=== PATIENT | female | born 1950 | race Caucasian/White ===

== ENCOUNTER 2019-07-03 19:03 | Inpatient (IN) ==
--- NOTE | 2019-07-03 20:10 | Diag Imaging Result Doc PS360 ---
EXAM: CHEST-1 VIEW 07/03/2019 HISTORY: fall TECHNIQUE: AP chest supine COMMENT: There is cardiomegaly. There is generalized osteopenia. The lungs are clear. There are no previous studies. IMPRESSION: Cardiomegaly. Electronically signed by London Villalpando 07/03/2019 8:08 PM
--- NOTE | 2019-07-03 20:11 | Diag Imaging Result Doc PS360 ---
EXAM: XRAY PELVIS W/HIP 2-3VW LT 07/03/2019 HISTORY: fall TECHNIQUE: Left and AP pelvis three views COMMENT: There is a fracture of the left femoral neck. There is generalized osteopenia. IMPRESSION: Fractured left femoral neck. Electronically signed by London Villalpando 07/03/2019 8:09 PM
--- NOTE | 2019-07-03 20:11 | Diag Imaging Result Doc PS360 ---
EXAM: KNEE 3 VIEWS LEFT 07/03/2019 HISTORY: fall, trauma to left knee TECHNIQUE: Left knee three views COMMENT: There is marked joint space narrowing. There is erosion of the medial femoral condyle and large osteophytes on both sides of the joint. There is an effusion. No evidence of fracture or dislocation is present. IMPRESSION: Severe osteoarthritis. Electronically signed by London Villalpando 07/03/2019 8:09 PM
[2019-07-03 20:14] LABS: BASO# 0.03 X1000 (0.0-0.2); BASO% 0.2 % (0.0-0.8); EOS# 0.01 X1000 (0.0-0.7); EOS% 0.1 % (0.0-10.0); HEMATOCRIT 32.5 % (37.0-47.0); HEMOGLOBIN 10.2 g/dL (12.0-16.0); IMM GRAN# 0.15 X1000 (0.0-0.04); LYMPH% 4.8 % (20.5-51.1); MCH 23.6 PG (27-31); MCHC 31.4 g/dL (33-37); MCV 75.1 FL (81-99); MONO# 0.53 X1000 (0.11-0.59); MONO% 3.6 % (1.7-9.3); MPV 9.8 FL (7.4-10.4); NEUT# 13.27 X1000 (1.4-6.5); NEUT% 90.3 % (42.2-75.2); PLT 386 X1000 (130-400); RBC 4.33 XMIL (4.2-5.4); RDW 17.1 % (11.5-14.5); WBC 14.69 X1000 (4.8-10.8)
[2019-07-03 20:32] LABS: AGAP 12; ALBUMIN 3.6 g/dL (3.5-5.0); ALKALINE PHOSPHATASE 75 U/L (32-104); BUN 10 mg/dL (8-22); CALCIUM 8.9 mg/dL (8.8-10.2); CHLORIDE 98 mmol/L (98-107); COSMO 268; CREATININE 0.5 mg/dL (0.5-0.9); ESTIMATED GFR > 60; GLUCOSE 111 mg/dL (70-104); GOT 15 U/L (10-30); GPT 10 U/L (10-36); POTASSIUM 3.6 mmol/L (3.5-5.1); SODIUM 134 mmol/L (136-145); TCO2 24 mmol/L (25-35); TOTAL BILIRUBIN 0.41 mg/dL (0.20-1.00); TOTAL PROTEIN 7.3 g/dL (6.3-8.3)
[2019-07-03] MEDS ORDERED: NS 1,000 ML IV ONE (20:34)
[2019-07-03] MEDS ORDERED: MORPHINE IV ONE (20:34)
[2019-07-03] MEDS ORDERED: NORVASC PO ONE (21:16)
[2019-07-03] MEDS ORDERED: APRESOLINE IV ONE (21:16)
--- NOTE | 2019-07-03 21:20 | Diag Imaging Result Doc PS360 ---
EXAM: FOREARM-LEFT 07/03/2019 HISTORY: fall, trauma TECHNIQUE: Left forearm COMMENT: There is a fracture of the distal humerus. There is severe erosion of the radial head and olecranon fossa. IMPRESSION: There is a fracture of the distal humerus and severe erosive arthritis as described. Electronically signed by London Villalpando 07/03/2019 9:18 PM
--- NOTE | 2019-07-03 21:28 | Diag Imaging Result Doc PS360 ---
EXAM: ELBOW COMPLETE LEFT 07/03/2019 HISTORY: fall, trauma TECHNIQUE: Left elbow three views COMMENT: There are severe erosive changes present in the olecranon and radial head. There is a fracture passing through the distal shaft of the humerus into the intercondylar region. IMPRESSION: Fracture distal humerus. Chronic erosive changes. Electronically signed by London Villalpando 07/03/2019 9:26 PM
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
[2019-07-03] MEDS ORDERED: OXY IR PO PRN (22:38)
[2019-07-03 22:47] LABS: URINE SOURCE CATH
[2019-07-03 22:59] LABS: BILIRUBIN URINE NEGATIVE (NEGATIVE); BLOOD URINE TRACE (NEGATIVE); COLOR YELLOW; GLUCOSE URINE NEGATIVE (NEGATIVE); KETONE URINE NEGATIVE (NEGATIVE); LEUKOCYTES URINE NEGATIVE (NEGATIVE); NITRITE URINE NEGATIVE (NEGATIVE); PH URINE 6.5; PROTEIN URINE NEGATIVE (NEGATIVE); SP GRAVITY URINE 1.011; TURBIDITY URINE CLEAR (CLEAR); UROBILINOGEN URINE NORMAL (NORMAL)
[2019-07-03] MEDS ORDERED: NS 1,000 ML ONE (23:00)
[2019-07-03 23:01] LABS: UR EPITHELIAL CELLS <10 /HPF (<10); URINE BACTERIA NEGATIVE /HPF; URINE RBC <10 /HPF (<10); URINE WBC <10 /HPF (<10)
[2019-07-03] MEDS: NS 1,000 ML IV SCH (23:03)
[2019-07-03] MEDS: MORPHINE IV PRN (23:23)
[2019-07-03] MEDS: ZOFRAN IV PRN (23:23)
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
[2019-07-04] MEDS: NS 1,000 ML IV SCH ×2 (05:54→15:01)
[2019-07-04] MEDS: MORPHINE IV PRN (05:54)
[2019-07-04] MEDS: ZOFRAN IV PRN (05:54)
[2019-07-04 07:00] LABS: BASO# 0.02 X1000 (0.0-0.2); BASO% 0.3 % (0.0-0.8); EOS# 0.01 X1000 (0.0-0.7); EOS% 0.1 % (0.0-10.0); HEMATOCRIT 29.1 % (37.0-47.0); HEMOGLOBIN 8.9 g/dL (12.0-16.0); LYMPH# 0.89 X1000 (1.2-3.4); LYMPH% 12.9 % (20.5-51.1); MCH 23.2 PG (27-31); MCHC 30.6 g/dL (33-37); MONO# 0.41 X1000 (0.11-0.59); MONO% 5.9 % (1.7-9.3); MPV 10.1 FL (7.4-10.4); NEUT# 5.57 X1000 (1.4-6.5); NEUT% 80.8 % (42.2-75.2); PLT 344 X1000 (130-400); RBC 3.83 XMIL (4.2-5.4); RDW 17.2 % (11.5-14.5)
[2019-07-04 07:28] LABS: AGAP 10; BUN 8 mg/dL (8-22); CHLORIDE 101 mmol/L (98-107); COSMO 269; CREATININE 0.4 mg/dL (0.5-0.9); ESTIMATED GFR > 60; GLUCOSE 108 mg/dL (70-104); SODIUM 135 mmol/L (136-145); TCO2 24 mmol/L (25-35)
[2019-07-04] MEDS ORDERED: DIPRIVAN 1% ONE (07:39)
[2019-07-04] MEDS ORDERED: NEOSPORIN G.U. IRRIGANT ONE (07:51)
[2019-07-04] MEDS ORDERED: KEFZOL 1 GM/D5W 1 GM/50 ML IVPB ONE (08:09)
[2019-07-04] MEDS ORDERED: TYLENOL PO PRN (09:00)
[2019-07-04] MEDS ORDERED: ROBINUL ONE (09:17)
[2019-07-04] MEDS ORDERED: ZOFRAN ONE (09:17)
[2019-07-04] MEDS ORDERED: EPHEDRINE ONE (09:17)
[2019-07-04] MEDS ORDERED: DECADRON ONE (09:17)
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
--- NOTE | 2019-07-04 10:45 | Diag Imaging Result Doc PS360 ---
EXAM: HIP 1 VIEW LEFT 07/04/2019 HISTORY: l hemiarthroplasty TECHNIQUE: AP left hip COMMENT: There is a bipolar hip prosthesis. No additional fractures or acute bony abnormalities are present. IMPRESSION: Postsurgical changes. Electronically signed by London Villalpando 07/04/2019 10:42 AM
[2019-07-04] MEDS ORDERED: MORPHINE IV PRN (11:15)
[2019-07-04] MEDS ORDERED: MILK OF MAGNESIA PO PRN (11:15)
[2019-07-04] MEDS ORDERED: ZOFRAN IV PRN (11:15)
[2019-07-04] MEDS: OXY IR PO PRN (13:17)
[2019-07-04] MEDS: TYLENOL PO SCH ×2 (13:17→22:52)
[2019-07-04] MEDS: MIRALAX PO SCH (15:00)
[2019-07-04] MEDS: PERICOLACE PO SCH ×4 (15:02→22:52)
--- NOTE | 2019-07-04 15:37 | OPERATIVE NOTE ---
PROCEDURE DATE: 07/04/2019 PREOPERATIVE DIAGNOSIS: 1. Left displaced femoral neck fracture. 2. Left distal humeral fracture. PROCEDURES: 1. Left bipolar hemiarthroplasty with a DePuy Actis size 7 high offset press- fit stem, a 28+ 5 femoral head with a 28 x 43 bipolar head. 2. Application posterior splint left upper extremity. SURGEON: Dr. Kennedy. ANESTHESIA: Spinal. IV FLUIDS: 600 mL lactated Ringer's. BLOOD LOSS: 75 mL. COMPLICATIONS: None. INDICATION: A 69-year-old female who is 1 day status post fall sustaining a left displaced femoral neck fracture as well as a left distal humeral fracture with good alignment and significant degenerative arthritic changes in the elbow from rheumatoid arthritis. Given patient's findings, recommendation to proceed with hemiarthroplasty left hip was offered, risks, benefits surgery explained including risk anesthesia, , bleeding, infection, failure relieve pain, postop stiffness, nerve injury, blood clots, other imponderables. Given the patient's findings on the left elbow will attempt nonoperative treatment. All questions answered patient family agree treatment plan. DETAILS OF OPERATION: The patient taken to the operating room and underwent spinal anesthesia. After adequate anesthesia obtained she is placed in right lateral decubitus position on green bag with axillary roll. Left hip subsequently prepped and draped in sterile fashion. Standard lateral incision made, posterior approach performed. The incision was carried into the gluteus ilene. A Charnley retractor was placed, piriformis identified and stay sutures placed. The piriformis tendon along with short external rotator is then elevated from its insertion retracted posteriorly. A T-shaped capsulotomy was then performed, stay sutures placed in each corner. The fracture site was then identified. Approximately 1 cm proximal to the lesser trochanter femoral neck resection performed. The head was then removed. Box cutting guide was then placed intramedullary canal was followed by starting reamer. Sequential broaching was then performed up size 7. Calcar planer was placed. Trial stem and trial head and neck length was determined and the 28+ 5 femoral head with a 28 x 43 bipolar head and high offset had good stability and good range of motion. The hip was then dislocated. The trial implants were removed. Wound was copiously irrigated pulsatile lavage. A size 7 high offset Actis press-fit stem was then impacted had good fit. The 28+ 5 femoral head with a 28 x 43 bipolar head was then placed. The hip was reduced, carried through range of motion, good range of motion good stability. The wound was copiously irrigated once again with antibiotic pulsatile lavage. The posterior capsule repaired with #1 Vicryl, the piriformis tendon repaired #1 Vicryl. The wound was copiously irrigated once again. The gluteus ilene fascia repaired in running fashion. 2-0 Vicryl then placed followed by skin tiki. Adaptic, sterile 4 x 4s, ABD pad and tape was applied to the left hip. The patient tolerated procedure well and there was no complication. Attention was then turned to the left upper extremity and the current posterior splint was noted to have some loosening and a new one was applied. She was transferred to the recovery room in stable condition. cc: Quinn Kennedy MD MTDD
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
[2019-07-04] MEDS: NORVASC PO SCH (16:12)
[2019-07-04] MEDS: KEFZOL 1 GM/D5W 1 GM/50 ML IVPB IV SCH (16:13)
[2019-07-04] MEDS: PERIDEX MT SCH (22:52)
[2019-07-04] MEDS: COLACE PO SCH (22:52)
[2019-07-04] MEDS: NICODERM PATCH TD SCH (22:56)
[2019-07-04] MEDS: HALDOL IV PRN (22:56)
[2019-07-05] MEDS: KEFZOL 1 GM/D5W 1 GM/50 ML IVPB IV SCH ×2 (02:17→09:16)
[2019-07-05] MEDS: NS 1,000 ML IV SCH (02:18)
[2019-07-05] MEDS: TYLENOL PO SCH ×3 (04:54→21:56)
[2019-07-05] MEDS: XARELTO PO SCH (06:26)
[2019-07-05 07:13] LABS: HEMATOCRIT 26.7 % (37.0-47.0); HEMOGLOBIN 8.3 g/dL (12.0-16.0)
[2019-07-05] MEDS: NORVASC PO SCH ×2 (07:48→09:19)
[2019-07-05 08:00] LABS: AGAP 10; BUN 10 mg/dL (8-22); CALCIUM 8.1 mg/dL (8.8-10.2); CHLORIDE 97 mmol/L (98-107); COSMO 266; CREATININE 0.5 mg/dL (0.5-0.9); ESTIMATED GFR > 60; GLUCOSE 100 mg/dL (70-104); POTASSIUM 3.4 mmol/L (3.5-5.1); SODIUM 133 mmol/L (136-145); TCO2 26 mmol/L (25-35)
[2019-07-05] MEDS: PERICOLACE PO SCH ×3 (09:14→21:56)
[2019-07-05] MEDS: MIRALAX PO SCH (09:14)
[2019-07-05] MEDS: FERROUS SULFATE PO SCH (09:16)
--- NOTE | 2019-07-05 09:16 | ORTHOPAEDICS PROGRESS NOTE ---
DATE: 07/05/2019 SUBJECTIVE: The patient is a pleasant, 69-year-old female who is 1 day status post bipolar hemiarthroplasty of the left hip. She also underwent application of pressure splint for a left distal humeral fracture. She is currently resting comfortably. Does have some discomfort in the left upper extremity. PHYSICAL EXAMINATION: The left upper extremity splint is intact. She is able to flex and extend all of her fingers. Good capillary refill distally. The left lower extremity dressing is intact. Her calf is soft. She has active dorsiflexion and plantar flexion. IMPRESSION: 1. Postoperative day#1 status post bipolar hemiarthroplasty of the left hip. 2. Left distal humeral fracture. PLAN: At this point, we will plan on just changing her dressing tomorrow. Patient will be weightbearing as tolerated to the left lower extremity and nonweightbearing through the left upper extremity. We will consult social services analyst for discharge planning. cc: Quinn Kennedy MD
[2019-07-05] MEDS: PERIDEX MT SCH ×2 (09:23→21:56)
[2019-07-05] MEDS: COZAAR PO SCH (09:23)
[2019-07-05] MEDS: OXY IR PO PRN ×3 (10:33→23:03)
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
[2019-07-05] MEDS: HALDOL IV PRN (20:11)
[2019-07-05] MEDS: NICODERM PATCH TD SCH (21:55)
[2019-07-05] MEDS: COLACE PO SCH (21:56)
--- NOTE | 2019-07-06 07:01 | EKG Report ---
Test Performed on : 07/04/2019 07:39:52 AM Test Reason : surgery Blood Pressure : / mmHG Vent. Rate : 061 BPM Atrial Rate : 061 BPM P-R Int : 120 ms QRS Dur : 088 ms QT Int : 412 ms P-R-T Axes : 065 048 094 degrees QTc Int : 414 ms Normal sinus rhythm. Minimal voltage criteria for LVH, may be normal variant Nonspecific T wave abnormality Abnormal ECG No previous ECGs available Confirmed by Torito FU, Wilbert Stuart ([id number]) on 07/06/2019 12:08:24 PM
--- NOTE | 2019-07-06 07:03 | ORTHOPAEDICS PROGRESS NOTE ---
DATE: 07/06/2019 SUBJECTIVE: The patient is a pleasant, 69-year-old female who is 2 days status post hemiarthroplasty to the left hip. The patient also has a left distal humeral fracture with the plan of treating it nonoperatively. She had some confusion through the night and had been trying to get out of head. OBJECTIVE: On physical examination of the patient's left upper extremity, the Piotr wrap is removed. Posterior splint is in place with a Kerlix roll. She is able to flex and extend her fingers. The left lower extremity, left hip, wound looks good. There are no signs or symptoms of infection. Calf is soft. Laboratory Data: Labs are pending this morning. Her hemoglobin and hematocrit from yesterday were 8.3 and 26.7. IMPRESSION: 1. Postoperative day #2 status post hemiarthroplasty to the left hip. 2. Left distal humeral fracture. PLAN: At this point, the patient may be allowed to be weightbearing as tolerated through the left lower extremity and nonweightbearing through the left upper extremity. Lacrosse Player have been consulted for rehab placement. We will plan on placing the patient in a long-arm cast either today or tomorrow. cc: Quinn Kennedy MD
[2019-07-06] MEDS: XARELTO PO SCH (07:16)
[2019-07-06] MEDS: TYLENOL PO SCH ×3 (07:16→20:09)
[2019-07-06] MEDS: MIRALAX PO SCH ×2 (09:12→09:20)
[2019-07-06] MEDS: FERROUS SULFATE PO SCH (09:13)
[2019-07-06] MEDS: NORVASC PO SCH ×2 (09:13→20:09)
[2019-07-06] MEDS: COZAAR PO SCH (09:13)
[2019-07-06] MEDS: PERIDEX MT SCH ×3 (09:13→20:09)
[2019-07-06] MEDS: PERICOLACE PO SCH ×3 (09:13→20:09)
[2019-07-06] MEDS: NICODERM PATCH TD SCH (09:19)
[2019-07-06 09:52] LABS: HEMATOCRIT 30.2 % (37.0-47.0); HEMOGLOBIN 9.5 g/dL (12.0-16.0); MCH 23.9 PG (27-31); MCHC 31.5 g/dL (33-37); MCV 76.1 FL (81-99); MPV 9.7 FL (7.4-10.4); RBC 3.97 XMIL (4.2-5.4); RDW 17.1 % (11.5-14.5); WBC 8.33 X1000 (4.8-10.8)
[2019-07-06 10:11] LABS: AGAP 11; BUN 6 mg/dL (8-22); CALCIUM 8.5 mg/dL (8.8-10.2); CHLORIDE 93 mmol/L (98-107); COSMO 264; CREATININE 0.4 mg/dL (0.5-0.9); ESTIMATED GFR > 60; GLUCOSE 129 mg/dL (70-104); PHOSPHORUS 2.7 mg/dL (2.7-4.5); POTASSIUM 3.9 mmol/L (3.5-5.1); SODIUM 132 mmol/L (136-145); TCO2 28 mmol/L (25-35)
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
[2019-07-06] MEDS: COLACE PO SCH (20:09)
[2019-07-07] MEDS: XARELTO PO SCH (05:29)
[2019-07-07] MEDS: TYLENOL PO SCH ×2 (05:29→13:36)
[2019-07-07 07:03] LABS: HEMATOCRIT 30.2 % (37.0-47.0); HEMOGLOBIN 9.7 g/dL (12.0-16.0)
[2019-07-07 07:45] LABS: AGAP 10; BUN 13 mg/dL (8-22); CALCIUM 8.5 mg/dL (8.8-10.2); CHLORIDE 95 mmol/L (98-107); COSMO 270; CREATININE 0.5 mg/dL (0.5-0.9); ESTIMATED GFR > 60; GLUCOSE 103 mg/dL (70-104); IRON SATURATION 13 %; POTASSIUM 3.2 mmol/L (3.5-5.1); SODIUM 135 mmol/L (136-145); TCO2 30 mmol/L (25-35); TIBC 185 ug/dL; TOTAL IRON 24 ug/dL (49-151); UNBOUND IRON 161 ug/dL (112-346)
[2019-07-07 08:21] LABS: FERRITIN 930 ng/mL (13-150)
[2019-07-07] MEDS: MIRALAX PO SCH (09:39)
[2019-07-07] MEDS: NICODERM PATCH TD SCH (09:39)
[2019-07-07] MEDS: FERROUS SULFATE PO SCH (09:40)
[2019-07-07] MEDS: NORVASC PO SCH (09:40)
[2019-07-07] MEDS: COZAAR PO SCH (09:40)
[2019-07-07] MEDS: PERIDEX MT SCH (09:40)
[2019-07-07] MEDS: PERICOLACE PO SCH ×2 (09:41→15:04)
--- NOTE | 2019-07-07 09:48 | ORTHOPAEDICS PROGRESS NOTE ---
DATE: 07/07/2019 SUBJECTIVE: The patient is a pleasant 69-year-old female who is 3 days status post hemiarthroplasty of the left hip. She also has a left distal humeral fracture. She is currently sleeping. OBJECTIVE: On physical exam, her splint has been loosened and Piotr wrap is off and a Kerlix roll is in place. LABORATORY DATA: Her hemoglobin and hematocrit from yesterday were 9.5 and 30.2. IMPRESSION: 1. Postoperative day number 3, status post hemiarthroplasty of the left hip. 2. Left distal humeral fracture. PLAN: At this point, we will place the patient in a long arm cast of the left upper extremity. She will be weightbearing as tolerated to the left lower extremity and nonweightbearing to the left upper extremity. corporate services manager has been consulted for inpatient rehabilitation. cc: Quinn Kennedy MD
[2019-07-07] MEDS ORDERED: KLOR-CON PO ONE (10:13)
[2019-07-07] MEDS ORDERED: VITAMIN B-12 SL SCH (10:15)
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
[2019-07-07 16:28] VITALS: BP 160/77
[2019-07-07] MEDS ORDERED: FOLIC ACID PO SCH (21:00)
== END 2019-07-07 16:20 | DRG 470 ==
LOC: ED 19:03 → SUATTDRO 21:43 → 4N 21:43
PROVIDERS: ATTEND Internal Medicine